=== PATIENT | female | born 1955 | race Caucasian/White ===

== ENCOUNTER 2018-06-26 09:19 | Day surgery (SDC) | payer MEDICARE, OTHER ==
[~2018-06-26 09:19] MED LIST: PROPOFOL 200 MG INJ
[2018-06-26] MEDS ORDERED: PROPOFOL 60 ML (10:37)
[2018-06-26] MEDS ORDERED: LIDOCAINE 2% (SDV) 5 ML INJ (10:38)
== END 2018-06-26 12:23 | disposition home or self-care (01) ==
LOC: GIL 09:19
DX: Z12.11 Encounter for screening for malignant neoplasm of colon (principal); K64.8 Other hemorrhoids; K57.90 Diverticulosis of intestine, part unspecified, without perforation or abscess without bleeding; E11.9 Type 2 diabetes mellitus without complications; I10 Essential (primary) hypertension; E78.5 Hyperlipidemia, unspecified; Z79.82 Long term (current) use of aspirin; Z79.84 Long term (current) use of oral hypoglycemic drugs
CPT/HCPCS: 45378; 82962